=== PATIENT | female | born 1980 | race Caucasian/White ===

== ENCOUNTER 2017-08-11 07:21 | Inpatient (IN) | payer OTHER ==
[~2017-08-11] VITALS: Ht 165.1 cm; Wt 3.6 kg
[2017-08-11] MEDS ORDERED: PRENATABS FA T1 EACH PO (09:05)
== END 2017-08-13 17:16 | disposition home or self-care (01) | DRG 775 ==
LOC: LDR 07:21 → OB/GYN 08-12 00:30
PROC: 10E0XZZ Delivery of Products of Conception, External Approach (ICD-10-PCS; principal; 2017-08-11)
PROC: 3E0P7VZ Introduction of Hormone into Female Reproductive, Via Natural or Artificial Opening (ICD-10-PCS; 2017-08-11)
PROC: 3E033VJ Introduction of Other Hormone into Peripheral Vein, Percutaneous Approach (ICD-10-PCS; 2017-08-11)
PROC: 4A1HXCZ Monitoring of Products of Conception, Cardiac Rate, External Approach (ICD-10-PCS; 2017-08-11)
DX: O24.420 Gestational diabetes mellitus in childbirth, diet controlled (principal); Z3A.39 39 weeks gestation of pregnancy; Z37.0 Single live birth

== ENCOUNTER 2021-01-05 21:11 | Inpatient (IN) | payer OTHER ==
[~2021-01-05] VITALS: Ht 165.1 cm; Wt 71.2 kg
[~2021-01-05 21:11] MED LIST: PRENATABS FA T1 EACH PO
[2021-01-06] MEDS ORDERED: RESTORA RX CAP1 EACH (08:44)
[2021-01-06] MEDS ORDERED: VALACYCLOVIR500 MG (08:44)
== END 2021-01-08 14:28 | disposition home or self-care (01) | DRG 807 ==
LOC: OB/GYN 21:11 → LDR 21:11 → OB/GYN 01-06 10:23
PROVIDERS: ADMIT Obstetrics & Gynecology; ATTEND Obstetrics & Gynecology
PROC: 10E0XZZ Delivery of Products of Conception, External Approach (ICD-10-PCS; principal; 2021-01-06)
PROC: 4A1HXFZ Monitoring of Products of Conception, Cardiac Rhythm, External Approach (ICD-10-PCS; 2021-01-06)
DX: O42.02 Full-term premature rupture of membranes, onset of labor within 24 hours of rupture (principal); Z37.0 Single live birth; Z3A.39 39 weeks gestation of pregnancy